=== PATIENT | male | born 1995 | race Caucasian/White ===

== ENCOUNTER 2016-10-02 21:42 | Emergency (ER) | payer OTHER ==
[2016-10-02 21:49] VITALS: BP 127/73; PULSE 63; RESP 18; TEMP 97.6
--- NOTE | 2016-10-02 22:47 | ED ---
Lower Extremity Injury HPI - General Chief Complaint: Extremity Injury, Lower Stated Complaint: Ankle Pain Time Seen by Provider: 10/02/16 21:58 Source: patient Mode of arrival: wheelchair Limitations: no limitations - History of Present Illness Initial Comments: 20 year-old male patient presents to emergency department for evaluation of right ankle injury. Patient was playing softball around 7:15 when he came down on the base and rolled his ankle outward. Patient states he has had pain and swelling to the right ankle since then. Patient states he is able to and but it is painful. He denies any numbness or tingling to the foot. States he is able to move it however there is pain with motion. Denies any previous injury to the ankle. Denies any fall from the injury. Denies any other injuries or physical concerns. - Related Data Home Medications Medication Instructions Recorded Confirmed No Known Home Medications [No 09/21/13 10/02/16 Known Home Medications] Allergies Allergy/AdvReac Type Severity Reaction Status Date / Time No Known Allergies Allergy Verified 10/02/16 21:59 Review of Systems ROS Statement: Those systems with pertinent positive or pertinent negative responses have been documented in the HPI. ROS Other: All systems not noted in ROS Statement are negative. Past Medical History Past Medical History: No Reported History History of Any Multi-Drug Resistant Organisms: None Reported Past Surgical History: No Surgical Hx Reported Past Psychological History: No Psychological Hx Reported Smoking Status: Never smoker Past Alcohol Use History: None Reported Past Drug Use History: None Reported General Exam Limitations: no limitations General appearance: alert, in no apparent distress Head exam: Present: atraumatic, normocephalic, normal inspection Respiratory exam: Present: normal lung sounds bilaterally. Absent: respiratory distress, wheezes, rales, rhonchi, stridor Cardiovascular Exam: Present: regular rate, normal rhythm, normal heart sounds. Absent: systolic murmur, diastolic murmur, rubs, gallop, clicks Extremities exam: Present: full ROM, tenderness (Over the right lateral malleolus), normal capillary refill, joint swelling (Swelling noted surrounding the right lateral malleolus, minimal swelling noted to medial malleolus.), other (Patient does have full range of motion without limitation however does report pain with eversion and inversion of the foot. Skin pink, warm, and dry. Cap refill less than 3 seconds.). Absent: normal inspection, pedal edema, calf tenderness Neurological exam: Present: alert, oriented X3, CN II-XII intact Skin exam: Present: warm, dry, intact, normal color. Absent: rash Course Vital Signs 10/02/16 21:46 Temperature 97.6 F Pulse Rate 63 Respiratory 18 Rate Blood Pressure 127/73 O2 Sat by Pulse 98 Oximetry Medical Decision Making - Medical Decision Making 19 on the patient presented for evaluation of right ankle injury. X-ray did show soft tissue swelling over the lateral malleolus and probable small joint effusion. No acute fracture was seen. Patient was placed in an ankle stirrup splint. Instructions to ice and elevate the extremity. Instructions to follow up with orthopedics if his symptoms don't improve over the next 7-10 days. Patient instructed to return immediately for any new, worsening, or concerning symptoms. Patient verbalizes understanding and agrees with this plan. - Radiology Data Radiology results: report reviewed, image reviewed Review of x-ray of the right ankle shows the bones and joints are unremarkable, no acute fracture, no dislocation. Soft tissues does show swelling overlying the lateral malleolus without evidence of acute fracture. Probable small ankle joint effusion. Impression by Dr. Jimenes shows soft tissue swelling overlying the lateral malleolus without evidence of acute fracture. Probable small ankle joint effusion. Disposition Clinical Impression: Right ankle sprain Disposition: HOME SELF-CARE Condition: Good Instructions: Ankle Sprain (ED) Additional Instructions: Rest, ice, and elevate. Keep splint in place for comfort. Follow up for repeat x-ray in 7-10 days if symptoms haven't improved. Return immediately for any new, worsening, or concerning symptoms. Referrals: None,Stated [Primary Care Provider] - 1-2 days David Magaña MD [Medical Doctor] - 1-2 days Time of Disposition: 22:57
--- NOTE | 2016-10-02 22:54 | XR ---
EXAM: XR Right Ankle Complete, 3 or More Views CLINICAL HISTORY: Pain. TECHNIQUE: Frontal, lateral and oblique views of the right ankle. COMPARISON: None. FINDINGS: Bones/joints: Unremarkable. No acute fracture. No dislocation. Soft tissues: Soft tissue swelling is seen overlying the lateral malleolus without evidence of an acute fracture. Probable small ankle joint effusion. IMPRESSION: Soft tissue swelling overlying the lateral malleolus without evidence of an acute fracture. Probable small ankle joint effusion.
== END 2016-10-02 23:00 | disposition home or self-care (01) ==
LOC: EC 21:42
DX: S93.401A Sprain of unspecified ligament of right ankle, initial encounter (principal); X50.1XXA Overexertion from prolonged static or awkward postures, initial encounter; Y93.64 Activity, baseball
CPT/HCPCS: 73610; 99283; 29515; L4350